=== PATIENT | male | born 1960 | race Caucasian/White ===

== ENCOUNTER 2023-10-06 13:50 | Outpatient (CLI) | payer OTHER, SELFPAY ==
--- NOTE | ~2023-10-06 | XR_ITS ---
EXAM: XR lumbar spine min 4V DATE: 10/06/2023 14:10 HISTORY: M54.50 - Low back pain RADIATING DOWN LEGS, NO INJURY . COMPARISON: None available. FINDINGS: 5 nonrib-bearing lumbar-type vertebral bodies. No pars defects. Pedicles intact. 3 mm retr olisthesis at L1-2. Otherwise normal vertebral body alignment. Vertebral body heights preserved. Mult ilevel mild disc space narrowing and marginal osteophytosis. Multilevel moderate facet hypertrophy. . No fracture or dislocation. IMPRESSION: Grade 1 retrolisthesis at L1-2. Multilevel mild degenerative disc disease. Multilevel mod erate facet arthropathy. Reviewed, dictated and finalized at location K. IMPRESSION: Grade 1 retrolisthesis at L1-2. Multilevel mild degenerative disc d isease. Multilevel moderate facet arthropathy.
== END 2023-10-06 13:51 | disposition home or self-care (01) ==
PROVIDERS: PCP Family Medicine; Visit Provider Family Medicine
DX: M43.16 Spondylolisthesis, lumbar region (principal); M51.36 Other intervertebral disc degeneration, lumbar region; M47.896 Other spondylosis, lumbar region
CPT/HCPCS: 72110

== ENCOUNTER 2023-10-15 06:46 | Outpatient (CLI) | payer OTHER, SELFPAY ==
--- NOTE | ~2023-10-15 | MR_ITS ---
MRI of the lumbar spine Clinical History: Back pain Technique: Axial T2-weighted images, and sagittal T1-weighted, T2-weighted, and T2 fat-sat images wer e acquired. Findings: There is no fracture of the lumbar spine. There is minimal grade 1 retrolisthesis of L1 ove r L2. No bone marrow signal abnormality seen. At L1-L2, there is minimal disc bulge and moderate to advanced facet arthropathy. No central canal st enosis. There is minimal left neural foraminal narrowing. Right neural foramen preserved. At L2-L3, there is no disc bulge or herniation. There is severe facet arthropathy. No central canal s tenosis or neural foraminal narrowing. At L3-L4, there is minimal disc bulge, with severe facet arthropathy. No central canal stenosis. Ther e is mild right neural foraminal narrowing. Left neural foramen preserved. At L4-L5, there is minimal disc bulge with severe facet arthropathy. No central canal stenosis. There is mild to moderate left neural foraminal narrowing, and minimal right neural foraminal narrowing. At L5-S1, there is minimal disc bulge with moderate to advanced facet arthropathy. No central canal s tenosis or definite neural foraminal narrowing. Paravertebral soft tissues are unremarkable. Impression: Moderate degenerative spondylosis, as above. Minimal grade 1 retrolisthesis of L1 over L2. Reviewed, dictated and finalized at [facility]. Impression: Moderate degenerative spondylosis, as above. Minimal grade 1 retrolisthesis of L1 over L2.
== END 2023-10-15 06:47 | disposition home or self-care (01) ==
PROVIDERS: PCP Family Medicine; Visit Provider Family Medicine
DX: M47.896 Other spondylosis, lumbar region (principal)
CPT/HCPCS: 72148

== ENCOUNTER 2023-11-30 09:00 | Outpatient (RCR) | payer OTHER, SELFPAY ==
--- NOTE | 2023-10-19 16:14 | PTOPEVAL1 ---
Assessment and note entered by Theresa Tejeda, PT Evaluation Information Assessment Status Evaluation Onset 8 weeks ago Subjective Information PT reports waking up one morning feeling increased pain in one spot on the low back towards the top of L hip gradually got worse but now is slowly getting better after receiving muscle relaxants and steroids; at one point he thought he has done too much and overworked which resulted to the pain flaring up again. Reports that he has not taken prescription medication in the past 2 weeks, Continue to take Tylenol and Ibuprofen when the pain is bothering him. Picking objects up from the floor, bending over when getting in and out of bed, walking and stair climbing are activities that are limited at this time due to the excruciating pain. States he has to adjust work schedule and tasks depending on the pain levels. Pt personally wants to return to performing regular work loads and his daily tasks pain free. Reported Pain Level Pain Score 4: Self Report Additional Pain Score Comments Fell over backwards and another incident going forwards due to buckling of knees from increased pain. Stair climbing up and down aggravates pain. Assessment PT Clinical Summary Pt is a 63 yo male who presents to therapy with c/ o increased lowback and post hip pain. His MRI results showed moderate degenerative spondylosis, minimal grade 1 retrolisthesis of L1 over L2, X- rays also revealed multilevel mild degenerative disc disease, multilevel moderate facet arthropathy. Pt demos postural deficits, weakness, decreased standing and ambulation tolerance and gait impairments which impact his performance of IADLs and active work. Skilled PT necessary to address deficits and improve functional mobility. Plan of Care Interventions Electrical Stimulation,Gait Training,Hot Pack/Cold Pack,Manual Therapy,Mechanical Traction,Neuro Re- education,Patient/Caregiver Educati,Therapeutic Activities,Therapeutic Exercise,Ultrasound PT Services Indicated Yes Treatment Frequency and 2x/wk x 10 visits Duration These treatments will address the objective and functional deficits as defined
--- NOTE | 2023-10-20 13:06 | PTOPEVAL1 ---
Assessment and note entered by Theresa Tejeda, PT Evaluation Information Assessment Status Evaluation Diagnosis M54.9, M54.50 ICD-10 Condition Codes (PT) M54.16,R26.9,Weakness R53.1 Onset 8 weeks ago Subjective Information PT reports waking up one morning feeling increased pain in one spot on the low back towards the top of L hip gradually got worse but now is slowly getting better after receiving muscle relaxants and steroids; at one point he thought he has done too much and overworked which resulted to the pain flaring up again. Reports that he has not taken prescription medication in the past 2 weeks, Continue to take Tylenol and Ibuprofen only when the pain is getting unbearable. Picking objects up from the floor, bending over when getting in and out of bed, walking and stair climbing are activities that are limited at this time due to the excruciating pain. States he has to adjust work schedule and tasks depending on the pain levels. Pt personally wants to return to performing regular work loads and his daily tasks pain free. Reported Pain Level Pain Score 4: Self Report Additional Pain Score Comments Fell over backwards once and another incident going forwards due to buckling of knees from increased pain. Stair climbing up and down aggravates pain. Assessment PT Clinical Summary Pt is a 63 yo male who presents to therapy with c/ o increased low back and post hip pain. His MRI results showed moderate degenerative spondylosis, minimal grade 1 retrolisthesis of L1 over L2, X- rays also revealed multilevel mild degenerative disc disease, multilevel moderate facet arthropathy. Pt demos postural deficits, weakness, decreased standing and ambulation tolerance and gait impairments which impact his performance of IADLs and active work. Skilled PT necessary to address deficits and improve functional mobility. Plan of Care Interventions Electrical Stimulation,Gait Training,Hot Pack/Cold Pack,Manual Therapy,Mechanical Traction,Neuro Re- education,Patient/Caregiver Education,Therapeutic Activities,Therapeutic Exercise,Ultrasound PT Services Indicated Yes Treatment Frequency and
--- NOTE | 2023-10-20 13:08 | OPREHPOC ---
Outpatient Therapy Plan of Care This is a Multidisciplinary Plan of Care that may contain components documented by all disciplines (PT, OT, and ST.) PT Problem 1 PT Problem #1 Knowledge Deficit PT Goal 1 Goal PT will demo HEPs to improve core and back strength, hip stability Target Visit 10 PT Problem 2 PT Problem #2 Pain PT Goal 1 Goal Pt will report 3/10 at worst and when performing standing tasks or ambulation. Target Visit 10 PT Problem 3 PT Problem #3 Impaired Strength PT Goal 1 Goal Pt will demo 5/5 BLE strength and perform 5 x STS without pain and discomfort Target Visit 10 PT Problem 4 PT Problem #4 Impaired Functional Mobil PT Goal 1 Goal 1. Pt will perform 1 leg standing upto 10-15 seconds each LE with good core control and stability. 2. Pt will report a Modified Oswestry Low Back Disability score of <10% Target Visit 10
--- NOTE | 2023-12-03 10:05 | PTOPDC ---
Assessment and note entered by Theresa Tejeda, PT Evaluation Information Assessment Status Discharge Diagnosis M54.9, M54.50 ICD-10 Condition Codes (PT) M54.16,R26.9,Weakness R53.1 Onset 8 weeks ago Subjective Information Patient reports significant reduction in pain and he is able to go back to performing daily tasks at home and at his job without discomfort. states that exercises has helped with the tightness to back muscles, compliant with HEPs. Assessment PT Clinical Summary Pt has received a total of 9 treatment sessions and has showed significant improvement in ROM and strength to all tested planes. Gains in balance and gait also noted. Pt reports complete relief in pain level to 0/10, however continue to feel discomfort with certain twisting movements. States he is more aware about back protection and is compliant with HEPs. Pt has met all goals, skilled PT not necessary at this time. Plan of Care PT Services Indicated No
--- NOTE | 2023-12-03 10:05 | PTOPDC ---
Assessment and note entered by Theresa Tejeda, PT DISCHARGE Information Assessment Status Discharge Diagnosis M54.9, M54.50 ICD-10 Condition Codes (PT) M54.16,R26.9,Weakness R53.1 Onset 8 weeks ago Subjective Information Patient reports significant reduction in pain and he is able to go back to performing daily tasks at home and at his job without discomfort. states that exercises has helped with the tightness to back muscles, compliant with HEPs. Assessment PT Clinical Summary Pt has received a total of 9 treatment sessions and has showed significant improvement in ROM and strength to all tested planes. Gains in balance and gait also noted. Pt reports complete relief in pain level to 0/10, however continue to feel discomfort with certain twisting movements. States he is more aware about back protection and is compliant with HEPs. Pt has met all goals, skilled PT not necessary at this time. Plan of Care PT Services Indicated No
== END 2023-12-04 08:42 | disposition home or self-care (01) ==
LOC: ANHHIPT 09:00
PROVIDERS: PCP Family Medicine; Visit Provider Family Medicine
DX: M54.50 Low back pain, unspecified (principal)
CPT/HCPCS: 97012; 97014; 97032; 97035; 97110; 97112; 97140; 97161; 97530; 97750; G0283

== ENCOUNTER 2024-04-29 14:34 | Outpatient (CLI) | payer SELFPAY ==
--- NOTE | ~2024-04-29 | XR_ITS ---
HISTORY: R07.81 - Pleurodynia COMPARISON: None TECHNIQUE: 3 views of the left ribs were performed along with a PA and lateral view of the chest FINDINGS: No acute displaced fracture is appreciated. The cardiomediastinal silhouette is unremarkable. The lungs are clear. Bone mineralization is age-appropriate. IMPRESSION: No acute displaced left-sided rib fracture. The lungs are clear. Reviewed, dictated and finalized at location A. RY VENEER MACHINE OPERATOR
== END 2024-04-29 14:35 | disposition home or self-care (01) ==
PROVIDERS: PCP Family Medicine; Visit Provider Student in an Organized Health Care Education/Training Program
DX: R07.81 Pleurodynia (principal)
CPT/HCPCS: 71046; 71100

== ENCOUNTER 2024-04-29 15:34 | Outpatient (CLI) | payer OTHER, SELFPAY ==
--- OUTSIDE RECORDS SUMMARY | 2024-04-29 15:37 | XMS_ITS | Clinical Summary ---
Author Organization [facility] Address [facility] [place] [address] Care Team Providers Care Instructor Creeler Name Role Phone Unavailable Primary Care Provider Unavailabl e Social History Tobacco Use Types Packs/Day Years Used Date Smoking Tobacco: Never Assessed Sex and Gender Information Value Date Recorded Sex Assigned at Not on file Legal Sex Male 6:31 PM CDT Gender Identity Not on file Sexual Orientation Not on file Plan of Treatment Health Maintenance Due Date Last Done Comments Colorectal Cancer Screening Colonoscopy (10 Years) 1960 Annual Physical 1964 Hepatitis C 05/29/1979 DTaP, Tdap and Td Vaccines ( 1 - Tdap) 1980 Zoster Vaccines (1 of 2) 05/29/2011 COVID-19 Vaccine ( - 2023-2 5 season) 2023 Influenza Adult (#1) 2023 RSV Immunization or 60+ Years (1 - 1-dose 75+ series) 2036 Meningococcal B Vaccine Aged Out No l onger eligible based on patient's age to complete this topic Meningococcal Vaccine Aged Out No yvette lindsey eligible based on patient's age to complete this topic Pneumococcal Vaccine: Pediat rics (0 to 5 Years) and At-Risk Patients (6 to 64 Years) Aged Out No longer eligible b ased on patient's age to complete this topic RSV Immunizations Under 20 Months Aged Out No longer eligible based on patient's age to complete this topic
[2024-04-29 17:48] LABS: Basophils Percent Auto 0.3 % (0.2-1.2); Eosinophils Absolute Auto 0.1 K/mm3 (0-0.3); Eosinophils Percent Auto 0.7 % (0-4.4); Hematocrit 44.1 % (42.0-52.0); Hemoglobin 14.5 g/dL (14.0-18.0); Immature Granulocyte Absolute 0.06 K/mm3 (0.00-0.031); Immature Granulocyte Percent A 0.6 % (0-0.5); Lymphocytes Absolute Auto 1.57 K/mm3 (0.9-3.2); Lymphocytes Percent Auto 15.5 % (18.3-44.2); Mean Corpuscular HGB Conc 32.9 g/dl (32-36); Mean Corpuscular Hemoglobin 29.8 pg (26-34); Mean Corpuscular Volume 90.7 fl (80-100); Mean Platelet Volume 10.3 fl (7.4-10.4); Monocytes Absolute Auto 0.8 K/mm3 (0.1-0.6); Monocytes Percent Auto 8.3 % (2.6-8.5); Neutrophils Absolute Auto 7.6 K/mm3 (1.3-6.7); Neutrophils Percent Auto 74.6 % (45.5-73.1); Platelet Count Result 267 k/mm3 (150-375); Red Blood Count 4.86 M/mm3 (4.6-6.20); Red Cell Distribution Width 13.8 % (11.5-14.5); White Blood Count 10.2 K/mm3 (4.5-10.0)
[2024-04-29 17:56] LABS: Alanine Aminotransferase 47 U/L (6-50); Albumin Level 4.6 g/dL (3.5-5.1); Alkaline Phosphatase 58 U/L (38-126); Amylase 103 U/L (30-110); Anion Gap 13 mmol/L (4-12); Aspartate Amino Transferase 35 U/L (17-59); Bilirubin,Total 0.7 mg/dL (0.2-1.3); Blood Urea Nitrogen 23 mg/dL (9-20); Calcium 9.8 mg/dL (8.4-10.2); Carbon Dioxide 30 mmol/L (22-30); Chloride 97 mmol/L (98-107); Estimated Glomerular Filt Rate > 60; Glucose 106 mg/dL (65-110); Lipase 163 U/L (23-300); Potassium 5.2 mmol/L (3.4-5.0); Sodium 140 mmol/L (137-145)
== END 2024-04-29 15:35 | disposition home or self-care (01) ==
LOC: ANHGOSHLAB 15:35
PROVIDERS: PCP Family Medicine; Visit Provider Student in an Organized Health Care Education/Training Program
DX: R10.12 Left upper quadrant pain (principal)
CPT/HCPCS: 36415; 80053; 82150; 83690; 85025

== ENCOUNTER 2024-04-29 16:14 | Outpatient (CLI) | payer OTHER, SELFPAY ==
--- NOTE | ~2024-04-29 | CT_ITS ---
EXAMINATION: CT abdomen pelvis wo con DATE: 04/29/2024 16:55 INDICATION: Left upper quadrant abdominal pain. TECHNIQUE: Computed tomography (CT) of the abdomen and pelvis was performed without intravenous contr ast. Automated exposure control and iterative reconstruction technique were employed. The dose-length product was 308.43 mGy-cm. COMPARISON: None FINDINGS: Lung bases are clear. Heart size is normal. Atherosclerotic coronary artery calcifications. No perica rdial or pleural effusion. A few hepatic and splenic calcifications consistent with old granulomatous disease. Diffuse hepatic steatosis with focal sparing along the gallbladder fossa. Gallbladder, panc reas, bilateral adrenal glands and left kidney are normal. There are couple nonobstructing right sapna l stones the largest measuring 4 mm. Numerous diverticula along the descending and sigmoid colon with out adjacent from trace stranding to suggest diverticular colitis. Small bowel and appendix are shawn l. Small fat-containing bilateral inguinal hernias, larger on the left where there is also a left annie icocele. Bladder is normal. No free intraperitoneal gas or fluid. No pathologically enlarged abdomina l or pelvic lymphadenopathy. Mild lumbar and lower thoracic spondylosis. IMPRESSION: 1. No acute intra-abdominal/pelvic process. 2. Diverticulosis. 3. Nonobstructing right nephrolithiasis. 4. Diffuse hepatic steatosis. 5. Small bilateral fat-containing inguinal hernias. Reviewed, dictated and finalized at location A. L INSTALLER
--- OUTSIDE RECORDS SUMMARY | 2024-04-29 16:18 | XMS_ITS | Clinical Summary ---
Author Organization [facility] Address [facility] [place] [address] Care Team Providers Care Application Packager Name Role Phone Unavailable Primary Care Provider [...]
== END 2024-04-29 16:15 | disposition home or self-care (01) ==
PROVIDERS: PCP Family Medicine; Visit Provider Student in an Organized Health Care Education/Training Program
DX: K57.30 Diverticulosis of large intestine without perforation or abscess without bleeding (principal); N20.0 Calculus of kidney; K76.0 Fatty (change of) liver, not elsewhere classified; K40.20 Bilateral inguinal hernia, without obstruction or gangrene, not specified as recurrent
CPT/HCPCS: 36415; 74176; 80053; 82150; 83690; 85025